=== PATIENT | female | born 2000 | race Caucasian/White ===

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

== ENCOUNTER 2022-01-12 11:30 | Emergency (ER) | payer OTHER, SELFPAY ==
[2022-01-12 11:32] VITALS: BP 110/74; PULSE 85; RESP 16; TEMP 36.5; O2SAT 100; BMI 24.0
--- NOTE | 2022-01-12 11:57 | ED.RN ---
PER PT CLERICAL SUPPORT SPECIALIST THEODORE SABILLON PT DOES NOT NEED TO BE DRUG SCREENED. PHONE NUMBER [phone].
--- NOTE | 2022-01-12 12:38 | EDS_ITS ---
HPI History of Present Illness Chief Complaint: Bite Detail of Chief Complaint: Dog bite dorsal surface left thumb proximal IP joint Informant: patient Occured/Mechanism Comment: Dog bite at work by an [employer] Onset/Context/Timing Context: Sudden Onset Timing: Continuous Quality of Pain: - (Presently patient has no pain) Location: Dorsal side left thumb proximal IP joint Current Severity: Gone Worsened by: Nothing Relieved by: Nothing Associated Symptoms Associated Symptoms: Negative for Parasthesia, Weakness or Loss of Funtion Narrative Narrative: Patient is a 21-year-old [id number] woman who presents with dog bite to the dorsal surface of her left thumb. This occurred at work. Last tetanus shot was 7 to 8 years ago. She denies paresthesia, anesthesia raza. She denies allergies to antibiotics Tetanus Immunization: 5-10 years (Since this is a crush injury/dog bite will update tetanus) Prior similar symptoms: No Recent Illness/Hospitalization: No PFSH PFSH Medical History no medical history no medical history Home Medications amoxicillin 875 mg-potassium clavulanate 125 mg tablet 875 mg PO Q12H #6 TABLETS 01/12/22 [Rx Last Taken Unknown] Allergy/AdvReac Type Severity Reaction Status Date / Time No Known Allergies Allergy Verified 01/12/22 11:31 Surgical History no surgical history no surgical history Social History (Updated 01/12/22 @ 12:[address] Liborio Aquino MD) household members: family Smoking Status: Never smoker substance use type: does not use ROS ROS ED Constitutional Constitutional ED: Denies chills, fever(s), subjective or sweats Musculoskeletal Musculoskeletal: Denies back pain, myalgias or neck pain Integumentary Reports other Details: Dog bite as described in the HPI narrative ; Denies abscess, Abrasions or rash Neurologic Neurologic: Denies paresthesias or weakness Hematologic/Lymphatic Hematologic/Lymphatic: Denies easy bleeding or easy bruising EXAM Physical Exam Const Vital Signs: 01/12/22 11:32 Temperature 97.7 F L Temperature Source Temporal Pulse Rate 85 Respiratory Rate 16 Blood Pressure 110/74 Blood Pressure Mean 86 Pulse Ox 100 Oxygen Delivery Method Room Air Positive well nourished and well developed General Appearance ED: well developed and NAD HEENT Reports moist mucous membranes normocephalic and atraumatic Eyes PERRL and EOMs intact bilaterally Resp normal respiratory effort Cardio regular rate and regular rhythm Extremity full ROM; Negative for normal to inspection Extremity Narrative: Dog bite dorsal ulnar side of the left thumb proximal to the IP joint. The extensor pollicis longus is functionally intact. There is no pain with passive or active range of motion. There is no joint pain or fullness. Cap refill is normal. Sensation is normal. There is no subungual hematoma noted. Median, radial and ulnar function intact. Neuro oriented x3 and CN's II-XII intact bilaterally Sensorium / Orientation: alert Psych mental status grossly normal Skin Lesions: no lesions Rashes: no rashes Trauma: puncture; Negative for no lacerations or abrasions MDM MDM MDM Narrative Medical decision making narrative: This is a crush injury with puncture wound from dog bite tetanus was updated. She was placed on Augmentin for prophylaxis and wound was cleansed. She was referred to [facility] for follow-up in 2 days for wound check. Discharge Plan Triage Chief Complaint: Bite ED Provider: Liborio Aquino Dx/Rx/DC Orders Clinical Impression: Dog bite of left thumb Instructions: ED Dog Bite Prescriptions: New amoxicillin-pot clavulanate [amoxicillin-pot clavulanate] 875-125 mg tablet 875 mg PO Q12H Qty: 6 0RF Primary Care Provider: Wil Rizvi Referrals: [facility] [Group of Physicians] - 2 Days for wound check Wil Rizvi MD [Primary Care Provider] - Disposition Disposition: Home, Self Care
[2022-01-12] MEDS: Amox/Clavulanate 875 MG Tablet PO (12:54)
[2022-01-12] MEDS: Diphth,Pertuss(Acell),Tet Vac 0.5 ML Vial IM (12:54)
== END 2022-01-12 13:36 | disposition home or self-care (01) ==
LOC: ED 12:53
PROVIDERS: Emergency Provider Emergency Medicine; Visit Provider Emergency Medicine
DX: S61.032A Puncture wound without foreign body of left thumb without damage to nail, initial encounter (principal); S67.02XA Crushing injury of left thumb, initial encounter; W54.0XXA Bitten by dog, initial encounter; Z23 Encounter for immunization; Y99.0 Civilian activity done for income or pay
CPT/HCPCS: 90471; 90715; 99283

== ENCOUNTER → 2023-05-21 | Outpatient (CLI) | payer OTHER, SELFPAY ==
[2023-05-21 15:24] LABS: Absolute Lymphocyte Count 2.03 X10^3/uL (0.83-4.51); Absolute Neutrophil Count 4.6 X10^3/uL (2.0-7.7); Basophil# 0.02 X10^3/uL; Basophil% 0.3 % (0-1); Eosinophil# 0.09 X10^3/uL; Eosinophils% 1.3 % (0-5); Hemoglobin 13.2 g/dL (12.0-15.0); Lymphocyte # 2.03 X10^3/ul (0.83-4.51); Lymphocyte % 28.4 % (19-41); Mean Corp Hgb Conc 30.7 g/dL (32-36); Mean Corpuscular Volume 81.4 fL (81-99); Mean Platelet Vol. 11.8 fl (6.2-12.0); Monocyte# 0.37 X10^3/uL; Monocyte% 5.2 % (0-10); NRBC Flagged by Analyzer 0 % (0-5); Neutrophil # 4.61 X10^3/uL (2.7-7.7); Neutrophil % 64.4 % (47-70); Platelet Count 294 K/mm3 (150-450); RBC Distribution Width CV 14.8 % (11.6-14.6); RBC Distribution Width SD 44.2 fl (35.1-43.9); Red Blood Count 5.28 M/mm3 (4.2-5.4); White Blood Count 7.2 K/mm3 (4.4-11.0)
[2023-05-21 15:58] LABS: AST(SGOT) 14 U/L (15-37); Alanine Aminotransfer ALT/SGPT 21 U/L (13-56); Albumin, Serum 3.9 g/dL (3.2-5.0); Alkaline Phosphatase 79 U/L (45-117); Anion Gap 5 (5-15); BUN 14 mg/dL (7-18); BUN/Creat Ratio 18.3 RATIO (10-20); Calcium,Total 9.2 mg/dL (8.5-10.1); Chloride 106 mmol/L (98-107); Cholesterol 180 mg/dL (200); Creatinine, Serum 0.77 mg/dL (0.55-1.02); EST Glomerular Filtration Rate 100 mL/min (>60); Est Glom Filt Rate - Afr Amer 121 mL/min (>60); Ferritin 7 ng/mL (8-252); Globulin 4.1 g/dL (2.2-4.2); Glucose 95 mg/dL (74-106); High Density Lipoprotein 45 mg/dL; Iron 52 ug/dL (50-170); Iron Binding Capacity,Total 443 ug/dL (250-450); Magnesium 2.2 mg/dL (1.6-2.6); Sodium Level 138 mmol/L (136-145); Thyroid Stim Hormone (TSH) 1.81 uIU/mL (0.358-3.74); Triglycerides 130 mg/dL; Very Low Density Lipoprotein 26 mg/dL (5-40)
[2023-05-21 18:58] LABS: Vitamin B12 272 pg/mL (211-911); Vitamin D,25 Hydroxy 27.9 ng/mL
[2023-05-25 01:07] LABS: T3 Reverse 19.9 ng/dL (9.2-24.1)
== END | disposition home or self-care (01) ==
LOC: BIMLAB 14:17
PROVIDERS: PCP Nurse Practitioner; Referring Provider Nurse Practitioner; Visit Provider Nurse Practitioner
DX: N92.0 Excessive and frequent menstruation with regular cycle (principal); G47.00 Insomnia, unspecified; I49.9 Cardiac arrhythmia, unspecified; R51.9 Headache, unspecified
CPT/HCPCS: 36415; 80053; 80061; 82306; 82607; 82728; 83540; 83550; 83735; 84443; 84482; 85025

== ENCOUNTER → 2023-07-12 | Outpatient (CLI) | payer OTHER, SELFPAY ==
--- NOTE | 2023-07-12 12:16 | US_ITS ---
STUDY: ULTRASOUND OF THE FEMALE PELVIS - COMPLETE REASON FOR EXAM: Female, 22 years old. Irregular menses LMP: Unknown TECHNIQUE: Transabdominal and Transvaginal TECHNICAL QUALITY: Adequate. COMPARISON: None. FINDINGS: The uterus is anteverted and is in a midline position. The uterus measures 8.5 cm x 6.1 cm x 3.9 cm. There is a Nabothian cyst of the cervix. The endometrium measures 11.7 mm in thickness, and is . There is no demonstrated endometrial mass. There is no demonstrated myometrial mass. I.U.D. - The patient does not have an I.U.D. The right ovary is visualized. The right ovary measures 3.2 cm x 2.8 cm x 2.9 cm. There is no right ovarian cyst or ovarian mass. There is no visualized right adnexal mass or complex lesion. There is normal arterial and normal venous vascularity. The left ovary is visualized. The left ovary measures 3.2 cm x 3.1 cm x 2.0 cm. There is no left ovarian cyst or ovarian mass. There is no visualized left adnexal mass or complex lesion. There is normal arterial and normal venous vascularity. There is no fluid in the cul-de-sac. The pre void volume of the bladder was 72 ml. Polycystic ovary disease: Yes. US/Pelvic (Non ) IMPRESSION: Thickened endometrium most likely secondary to the menstrual phase. Findings suggestive of polycystic ovaries. Electronically Signed: Johny Rosen MD at 14:55 EDT ,
== END | disposition home or self-care (01) ==
LOC: PSN 12:15
PROVIDERS: PCP Nurse Practitioner; Referring Provider Nurse Practitioner; Visit Provider Nurse Practitioner
DX: N95.0 Postmenopausal bleeding (principal); I49.9 Cardiac arrhythmia, unspecified
CPT/HCPCS: 76830; 76856; 93225; 93226

== ENCOUNTER → 2023-07-17 | Outpatient (CLI) | payer OTHER, SELFPAY ==
[2023-07-17 17:14] LABS: Absolute Lymphocyte Count 2.65 X10^3/uL (0.83-4.51); Absolute Neutrophil Count 4.5 X10^3/uL (2.0-7.7); Basophil# 0.02 X10^3/uL; Basophil% 0.3 % (0-1); Eosinophil# 0.21 X10^3/uL; Eosinophils% 2.7 % (0-5); Hematocrit 31.3 % (37-47); Hemoglobin 9.8 g/dL (12.0-15.0); Lymphocyte # 2.65 X10^3/ul (0.83-4.51); Lymphocyte % 33.7 % (19-41); Mean Corp Hgb Conc 31.3 g/dL (32-36); Mean Corpuscular Hgb 25.2 pg (27.0-32.0); Mean Corpuscular Volume 80.5 fL (81-99); Mean Platelet Vol. 11.5 fl (6.2-12.0); Monocyte# 0.49 X10^3/uL; Monocyte% 6.2 % (0-10); NRBC Flagged by Analyzer 0 % (0-5); Neutrophil # 4.45 X10^3/uL (2.7-7.7); Neutrophil % 56.6 % (47-70); Platelet Count 336 K/mm3 (150-450); RBC Distribution Width SD 46.6 fl (35.1-43.9); Red Blood Count 3.89 M/mm3 (4.2-5.4); White Blood Count 7.9 K/mm3 (4.4-11.0)
[2023-07-17 17:51] LABS: Prolactin 9.4 ng/mL
[2023-07-17 18:11] LABS: Hemoglobin A1c 4.9 % (3.8-5.6)
[2023-07-23 22:06] LABS: Testosterone Free 0.8 pg/mL (0.0-4.2)
[2023-07-24 01:07] LABS: 17-Hydroxyprogesterone 55 ng/dL (.)
== END | disposition home or self-care (01) ==
LOC: LAB 16:39
PROVIDERS: PCP Nurse Practitioner; Referring Provider Obstetrics & Gynecology; Visit Provider Obstetrics & Gynecology
DX: E28.2 Polycystic ovarian syndrome (principal)
CPT/HCPCS: 36415; 82627; 82670; 83001; 83036; 83498; 84146; 84402; 85025; 82626

== ENCOUNTER → 2023-08-30 | Outpatient (CLI) | payer OTHER, SELFPAY ==
--- NOTE | 2023-08-30 13:38 | ECHOD_ITS ---
Reason For Study: PALPS Procedure This was a 2D Doppler, Color Flow transthoracic echocardiogram. Definity declined. Exam performed portable in patient room. Left Ventricle Normal LV size. The estimated ejection fraction is 55 %. No evidence for diastolic dysfunction. No regional wall motion abnormalities noted. Right Ventricle Normal RV size. Normal systolic function. Atria The left and right atria are normal. No doppler evidence for ASD. Mitral Valve There is no mitral valve stenosis. No mitral valve insufficiency. Tricuspid Valve There is no tricuspid stenosis. Unable to estimate RV systolic pressure due to inadequate jet, pulmonary artery pressure probably normal. Aortic Valve Trisinus/trileaflet aortic valve. There is no aortic stenosis. No aortic valve insufficiency. Pulmonic Valve There is no pulmonic valvular stenosis. No pulmonic valve insufficiency. Great Vessels Normal aortic root. Pericardium/Pleural No pericardial effusion. MMode/2D Measurements & Calculations LVIDd: 4.1 cm IVSd: 0.77 cm Ao root diam: 2.3 cm LVIDs: 2.8 cm LVPWd: 0.74 cm FS: 31.6 % LAV(MOD-bp): 25.8 ml LVAd ap4: 18.4 cm2 SV(MOD-sp4): 21.1 ml LAV(MOD-bp) Indexed: 16.2 ml/m2 LVLd ap4: 7.7 cm LAV(MOD-sp2): 28.9 ml EDV(MOD-sp4): 38.2 ml LAV(MOD-sp4): 19.3 ml EDV(sp4-el): 37.5 ml LVAs ap4: 10.7 cm2 LVLs ap4: 6.2 cm ESV(MOD-sp4): 17.1 ml ESV(sp4-el): 15.8 ml EF(MOD-sp4): 55.2 % EF(sp4-el): 57.8 % SV(sp4-el): 21.7 ml LA A4 area: 10.4 cm2 LA dimension(2D): 3.1 cm RA A4 area: 12.7 cm2 TAPSE: 2.3 cm Time Measurements MV dec time: 0.19 sec Doppler Measurements & Calculations MV E max anoop: 69.4 cm/sec Lat Peak E' Anoop: 21.1 cm/sec Med Peak E' Anoop: 10.4 cm/sec MV A max anoop: 57.7 cm/sec E/E' lat: 3.3 E/E' med: 6.7 MV E/A: 1.2 MV V2 max: 86.7 cm/sec Ao V2 max: 121.6 cm/sec MV max P.0 mmHg MV dec slope: 544.5 cm/sec2 Ao max P.9 mmHg MV V2 mean: 62.4 cm/sec Ao V2 mean: 87.0 cm/sec MV mean P.7 mmHg Ao mean P.4 mmHg MV V2 VTI: 20.0 cm Ao V2 VTI: 22.9 cm AV (velocity ratio): 0.89 LV V1 max: 105.5 cm/sec PA V2 max: 91.9 cm/sec LV V1 max P.5 mmHg PA V2 mean: 67.7 cm/sec LV V1 mean P.7 mmHg LV V1 mean: 77.2 cm/sec LV V1 VTI: 20.3 cm ECHO/Echo Complete Interpretation Summary The estimated ejection fraction is 55 %. No evidence for diastolic dysfunction. Ordering Physician: Tamiko Rasmussen Referring Physician: Tamiko Rasmussen Performed By: Lakia Hwang RCS
== END | disposition home or self-care (01) ==
LOC: CVS 13:37
PROVIDERS: PCP Nurse Practitioner; Referring Provider Nurse Practitioner; Visit Provider Nurse Practitioner
DX: R00.2 Palpitations (principal)
CPT/HCPCS: 93306

== ENCOUNTER → 2023-09-20 | Outpatient (CLI) | payer OTHER, SELFPAY ==
[2023-09-20 13:31] LABS: Absolute Lymphocyte Count 2.72 X10^3/uL (0.83-4.51); Absolute Neutrophil Count 6.1 X10^3/uL (2.0-7.7); Basophil# 0.02 X10^3/uL; Basophil% 0.2 % (0-1); Eosinophil# 0.24 X10^3/uL; Eosinophils% 2.5 % (0-5); Hematocrit 42.2 % (37-47); Hemoglobin 14.1 g/dL (12.0-15.0); Lymphocyte # 2.72 X10^3/ul (0.83-4.51); Lymphocyte % 28.4 % (19-41); Mean Corp Hgb Conc 33.4 g/dL (32-36); Mean Corpuscular Hgb 28.1 pg (27.0-32.0); Mean Corpuscular Volume 84.1 fL (81-99); Mean Platelet Vol. 11.6 fl (6.2-12.0); Monocyte% 5.2 % (0-10); NRBC Flagged by Analyzer 0 % (0-5); Neutrophil # 6.08 X10^3/uL (2.7-7.7); Neutrophil % 63.5 % (47-70); Platelet Count 336 K/mm3 (150-450); RBC Distribution Width CV 13.4 % (11.6-14.6); RBC Distribution Width SD 41.2 fl (35.1-43.9); Red Blood Count 5.02 M/mm3 (4.2-5.4); White Blood Count 9.6 K/mm3 (4.4-11.0)
[2023-09-20 13:52] LABS: Ferritin 25 ng/mL (8-252); Iron 63 ug/dL (50-170)
== END | disposition home or self-care (01) ==
LOC: LAB 12:51
PROVIDERS: PCP Nurse Practitioner; Referring Provider Nurse Practitioner; Visit Provider Nurse Practitioner
DX: N92.1 Excessive and frequent menstruation with irregular cycle (principal)
CPT/HCPCS: 36415; 82728; 83540; 85025